=== PATIENT | female | born 1940 | race Caucasian/White ===

== ENCOUNTER → 2017-02-04 | Outpatient (CLI) | payer OTHER | LOC: BHCLAF 13:30 | PROVIDERS: ATTEND Internal Medicine Cardiovascular Disease | DX: I48.0 Paroxysmal atrial fibrillation (principal) | CPT/HCPCS: 93005-PO ==

== ENCOUNTER → 2017-03-03 | Outpatient (CLI) | payer OTHER | LOC: BHFA 13:30 | PROVIDERS: ATTEND Internal Medicine Cardiovascular Disease | DX: I48.91 Unspecified atrial fibrillation (principal) ==

== ENCOUNTER → 2018-04-13 | Outpatient (CLI) | payer OTHER | LOC: FIMAGING 10:12 | PROVIDERS: ATTEND Internal Medicine | DX: Z12.31 Encounter for screening mammogram for malignant neoplasm of breast (principal); Z13.820 Encounter for screening for osteoporosis; M85.89 Other specified disorders of bone density and structure, multiple sites; Z78.0 Asymptomatic menopausal state ==

== ENCOUNTER 2018-05-25 14:08 | Day surgery (SDC) | payer OTHER ==
[2018-05-25] MEDS ORDERED: MIDAZOLAM 2 MG/2 ML VIAL IVP ONE (14:12)
[2018-05-25] MEDS ORDERED: ATROPINE SULFATE 1 MG/10 ML SYR IVP ONE (14:12)
[2018-05-25] MEDS ORDERED: fentaNYL 100 MCG/2 ML INJ IVP ONE (14:12)
[2018-05-25] MEDS ORDERED: NS 500 ML IV ONE (14:12)
[2018-05-25 14:59] LABS: INR 1.75 (0.83-1.16); PROTIME(PATIENT) 20.5 SEC (12.0-15.0)
[2018-05-25] MEDS ORDERED: SUCCINYLCHOLINE CHLORIDE 200 MG/10 ML SYR IVP ONE (15:17)
[2018-05-25] MEDS ORDERED: LIDOCAINE 2% 100 MG/5 ML SYR ONE (15:17)
[2018-05-25] MEDS ORDERED: PROPOFOL 200 MG/20 ML VIAL ONE (15:17)
--- NOTE | 2018-05-25 15:19 | PDANEPAE ---
ANE History of Present Illness a-flutter s/f D/C CV ANE Past Medical History - Cardiovascular History Hx Hypertension: Yes Hx Arrhythmias: Yes - Pulmonary History Hx Sleep Apnea: Yes ANE Review of Systems Review of Systems: - Exercise capacity Exercise capacity: >=4 METS ANE Patient History - Allergies Allergies/Adverse Reactions: No Allergies [NKDA] Allergy (Verified 05/25/18 14:11) - Home Medications Home medications: home medication list seen and reviewed - Smoking Hx Smoking Status: Never smoked ANE Labs/Vital Signs - Labs Result Diagrams: 05/25/18 14:40 - Vital Signs Height: 162.56 cm Weight: 74.843 kg ANE Physical Exam - Airway Neck exam: FROM Mallampati Score: Class 2 Mouth exam: normal dental/mouth exam - Pulmonary Pulmonary: no respiratory distress - Cardiovascular Cardiovascular: regular rate and rhythym - ASA Status ASA Status: II ANE Anesthesia Plan Anesthesia Plan: GA with mask
--- NOTE | 2018-05-25 15:30 | PDHPUP ---
History & Physical Update H&P update statement: This history and physical update is based on an assessment of the patient which was completed after admission or registration (within 24 hours), but prior to the surgery/procedure. H&P update: H&P reviewed & patient examined, no change in patient's condition since H&P completed, changes noted
--- NOTE | 2018-05-25 15:43 | POSTANESTH ---
Post Anesthetic Evaluation Cardiovascular Status: Normal, Stable Respiratory Status: Normal, Stable Level of Consciousness/Mental Status: Can Participate in Eval Pain Control: Adequate, Prn Tx Ordered Nausea/Vomiting Control: Adequate, Prn Tx Ordered Complications Possibly Related to Anesthesia: None Noted
--- NOTE | 2018-05-25 15:56 | CPR ---
DATE OF PROCEDURE: 05/25/2018 PROCEDURE PERFORMED: Direct current cardioversion. INDICATION FOR PROCEDURE: Symptomatic atrial fibrillation. SUMMARY: The patient is a pleasant 78-year-old female with a known history of paroxysmal atrial fibr illation who has been on a rhythm control and anticoagulation strategy with propafenone and anticoagu lation with Pradaxa 150 mg p.o. b.i.d. She noticed over the last several days that her rhythm was ir regular coupled with some symptoms of shortness of breath. She was seen by her primary physical director, Dr. Krishnan yesterday and arranged for cardioversion to be done today. The patient states she has been on Pradaxa 150 mg p.o. b.i.d. for the last 6 months without interrupt ion. She is certain that she has not missed a single dose of anticoagulation over the last 30 days. PROCEDURE: After informed consent was obtained for anesthesia as well as for cardioversion. Patient was sedated with the assistance of Anesthesia with propofol. Once appropriate level of sedation was achieved, the patient was cardioverted with a single biphasic synchronized shock of 200 joules with return to sinus rhythm in the mid 80s. Patient awoke from procedure without complications. PLAN: 1. Patient will be discharged home later today. 2. Patient be discharged on her outpatient medications. 3. Stressed the importance of remaining on Pradaxa 150 mg p.o. b.i.d. without interruption. 4. Patient will continue on her outpatient dose of propafenone. The patient will follow up with her primary physical director, Dr. Krishnan. 05/24/2018. /[id number]/MODL
--- NOTE | 2018-05-26 06:55 | CPEKG ---
Test Reason : OPEN Blood Pressure : / mmHG Vent. Rate : 082 BPM Atrial Rate : 082 BPM P-R Int : 214 ms QRS Dur : 152 ms QT Int : 421 ms P-R-T Axes : 056 075 009 degrees QTc Int : 492 ms Sinus rhythm Borderline prolonged NM interval Right bundle branch block Confirmed by Jeremy Brooks ([id number]) on 05/26/2018 6:55:50 AM Referred By: Confirmed By:Jeremy Brooks
--- NOTE | 2018-05-26 06:55 | CPEKG ---
Test Reason : OPEN Blood Pressure : / mmHG Vent. Rate : 116 BPM Atrial Rate : 294 BPM P-R Int : 055 ms QRS Dur : 142 ms QT Int : 362 ms P-R-T Axes : 000 078 012 degrees QTc Int : 503 ms Atrial flutter Right bundle branch block Confirmed by Jeremy Brooks ([id number]) on 05/26/2018 6:55:31 AM Referred By: Confirmed By:Jeremy Brooks
== END 2018-05-25 17:16 | disposition home or self-care (01) ==
LOC: FCATH 14:08
PROVIDERS: ATTEND Internal Medicine Cardiovascular Disease
PROC: 5A2204Z Restoration of Cardiac Rhythm, Single (ICD-10-PCS; principal; 2018-05-25)
DX: I48.0 Paroxysmal atrial fibrillation (principal); G47.33 Obstructive sleep apnea (adult) (pediatric); Z79.01 Long term (current) use of anticoagulants
CPT/HCPCS: J0330; J2001; J2704

== ENCOUNTER → 2018-06-08 | Outpatient (CLI) | payer OTHER | LOC: BHFA 13:15 | PROVIDERS: ATTEND Internal Medicine Cardiovascular Disease | DX: I10 Essential (primary) hypertension (principal) ==